=== PATIENT | male | born 1950 | race Caucasian/White ===

== ENCOUNTER 2019-05-21 20:34 | Observation (INO) ==
[2019-05-21] MEDS ORDERED: NITROGLYCERIN SL ONE (20:54)
[2019-05-21] MEDS ORDERED: GLUCAGON IV ONE (20:54)
[2019-05-21 21:18] LABS: BASO# 0.04 X1000 (0.0-0.2); BASO% 0.4 % (0.0-0.8); EOS# 0.03 X1000 (0.0-0.7); EOS% 0.3 % (0.0-10.0); HEMATOCRIT 54.3 % (42.0-52.0); HEMOGLOBIN 17.3 g/dL (14.0-18.0); IMM GRAN# 0.03 X1000 (0.0-0.04); IMM GRAN% 0.3 % (0.0-0.5); LYMPH# 1.11 X1000 (1.2-3.4); LYMPH% 10.3 % (20.5-51.1); MCH 30.7 PG (27-31); MCHC 31.9 g/dL (33-37); MCV 96.3 FL (81-99); MONO# 0.75 X1000 (0.11-0.59); MPV 10.2 FL (7.4-10.4); NEUT# 8.82 X1000 (1.4-6.5); NEUT% 81.7 % (42.2-75.2); PLT 271 X1000 (130-400); RBC 5.64 XMIL (4.7-6.1); RDW 12.4 % (11.5-14.5); WBC 10.78 X1000 (4.8-10.8)
[2019-05-21 21:43] LABS: ALB/GLOB RATIO 1.5; ALBUMIN 4.7 g/dL (3.5-5.0); CALCIUM 10.1 mg/dL (8.8-10.2); CREATININE 1.4 mg/dL (0.7-1.2); POTASSIUM 4.1 mmol/L (3.5-5.1); TOTAL BILIRUBIN 0.72 mg/dL (0.20-1.00); TOTAL PROTEIN 7.8 g/dL (6.3-8.3)
[2019-05-21] MEDS ORDERED: NS 1,000 ML IV SCH (22:15)
[2019-05-22] MEDS ORDERED: ZOFRAN IV PRN (00:24)
[2019-05-22] MEDS ORDERED: 1/2 NS 1,000 ML IV SCH (00:24)
--- NOTE | 2019-05-22 00:43 | HISTORY AND PHYSICAL ---
CHIEF COMPLAINT: Dysphagia of 5 days duration. HISTORY OF PRESENT ILLNESS: Patient is a 69-year-old male with no previous medical history who presents with dysphagia of 5 days duration. Patient describes having dysphagia which started after swallowing chicken. He said he felt the chicken got stuck in the middle of his throat. He has had dysphagia both to solid and liquids since then. The dysphagia is progressively worsening since then. Everything he has tried to eat since then he has always vomited it out. It has been difficult to hold anything down. He denies any odynophagia. Denies any fever. Denies any abdominal pain. Denies any change in his bowel movements. Denies any weight loss as well. Patient states he was having normal swallowing prior to this without any issues, but since 5 days ago he has had difficulty keeping anything down. Multiple times he has tried to initiate vomiting to see if he would vomit the chicken which he feels is stuck in the middle of his throat. He felt he vomited part of it but still feels there is a part of the chicken that is still stuck in the middle of his throat. Denies any shortness of breath or any cough. Due to the dysphagia, patient presented to the ER. In the ER, patient was seen. GI was consulted with plan to admit patient and patient to have an EGD tomorrow. ALLERGIES: No known drug allergies. PAST MEDICAL HISTORY: No previous past medical history. MEDICATIONS: Patient is not on any home medications. PAST SURGICAL HISTORY: Patient had a right leg ORIF done in the past. SOCIAL HISTORY: Describes past smoking history of about 100 pack years. Patient quit alcohol 20 years ago FAMILY HISTORY: Patient denies any significant family history, but patient's mother and his father are both healthy. REVIEW OF SYSTEM: Denies any dysuria, frequency, constipation or diarrhea. Ten-point review of systems done is negative except as stated in the HPI. PHYSICAL EXAMINATION: VITALS: Temperature 98.5, pulse was 108, respiratory rate is 20, blood pressure 123/78. O2 saturation is 96%. GENERAL: He is an elderly male in no acute respiratory distress. HEENT: Dry oral mucosa. Not pale. Anicteric. CARDIOVASCULAR: S1 and S2 heard. No murmurs, rubs or gallop. RESPIRATORY: Good air entry bilaterally. No wheeze. No crepitations. No added sound. NECK: No area of tenderness. No swelling noted as well about the neck. ABDOMEN: No area of tenderness. Bowel sounds normoactive. No organomegaly noted. EXTREMITIES: No pedal edema noted. NEUROLOGIC: Alert and oriented times 3. No significant neurological abnormalities noted. SKIN: No significant skin changes noted. LABORATORIES: WBC 10.78. Hemoglobin 17.3. Hematocrit 54.3. Platelets 271. Sodium 153. Potassium 4.1. Chloride 106. Carbon dioxide 27. BUN 43. Creatinine 1.4. Glucose 150. Alkaline phosphatase 123. AST 21. ALT 14. ASSESSMENT: He is a 69 year old with no significant past medical history who presents with dysphagia after eating chicken as patient felt the chicken is stuck in his throat. It has been difficult to keep anything down. He has had nausea and vomiting since then. He is having dysphagia to both solids and food and describes odynophagia as well. ACUTE DIAGNOSIS: 1. Dysphagia. 2. Hypernatremia. 3. Acute kidney injury. 4. Volume depletion with hemoconcentration. PLAN: 1. Dysphagia, GI plans to do an EGD to rule out any anatomical obstructive condition. Given patient describes dysphagia that started after eating with feeling of the chicken being stuck in the throat, we will do a CT of the neck with contrast to rule out any foreign body in the throat. We will put patient NPO after midnight and plan patient for EGD. GI consulted 2. Hypernatremia, fluid deficit of 3.5 L concomitant with a sodium level of 153 the plan will be to replete fluid with normal saline. We will do 80 mL/h of half-normal saline. Expect improvement in sodium level. Given patient also has an NAYLA. Half-normal saline would be better compared to D5 water repletion. 3. NAYLA. No previous baseline known. I expect creatinine level to improve with hydration with half-normal saline. We will monitor closely. Avoid all nephrotoxic medications. Monitor urine output. 4. Volume depletion with hemoconcentration. Patient's cell count appears elevated most likely due to volume depletion from poor oral intake. I expect his counts to improve and come to baseline with IV hydration with half-normal saline. DVT prophylaxis, Lovenox CODE STATUS: Full code. DISPOSITION: Admit to observation and we will discharge after EGD depending on EGD results when medically stable. [facility]
[2019-05-22 06:54] LABS: HEMATOCRIT 46.7 % (42.0-52.0); HEMOGLOBIN 15.3 g/dL (14.0-18.0); MCH 31.7 PG (27-31); MCHC 32.8 g/dL (33-37); MCV 96.7 FL (81-99); MPV 10.1 FL (7.4-10.4); RBC 4.83 XMIL (4.7-6.1); RDW 12.6 % (11.5-14.5); WBC 9.27 X1000 (4.8-10.8)
[2019-05-22 07:05] LABS: HEMOGLOBIN A1C 5.5 % (4.8-6.0)
[2019-05-22 07:19] LABS: CALCIUM 9.3 mg/dL (8.8-10.2); CREATININE 1.2 mg/dL (0.7-1.2)
--- NOTE | 2019-05-22 07:52 | Diag Imaging Result Doc PS360 ---
CT NECK W/O CONTRAST - 05/22/2019 INDICATION: dysphagia from chicken,feels stuck in throat COMPARISON: None FINDINGS: There is some fluid distention of the thoracic esophagus which is indeterminate. The soft tissues of the neck are unremarkable. No evidence of foreign body. No adenopathy. Mucosal surfaces are all clear. There are moderate degenerative changes of the spine. No acute or suspicious bony lesion. IMPRESSION: No acute abnormality. This exam was performed using automated exposure control, adjustment of mA or kV according to patient size, and/or use of iterative reconstruction technique Electronically signed by Jacob Craft 05/22/2019 7:50 AM
[2019-05-22] MEDS ORDERED: D5W 1,000 ML IV SCH (09:00)
[2019-05-22] MEDS ORDERED: XYLOCAINE-MPF 2% ONE (09:48)
[2019-05-22] MEDS ORDERED: QUELICIN (DOSE) ONE (09:48)
[2019-05-22] MEDS ORDERED: ROBINUL ONE (09:48)
[2019-05-22] MEDS ORDERED: DIPRIVAN 1% ONE ×2 (09:49→11:15)
--- NOTE | 2019-05-22 10:07 | GASTROENTEROLOGY CONSULTATION ---
DATE: 05/22/2019 REASON FOR CONSULTATION: Dysphagia, rule out food impaction. HISTORY OF PRESENT ILLNESS: Mr. Zhao Thurman is a 69-year-old gentle with past medical history of tobacco abuse who presents with 6 days of solid and liquid food dysphagia. The patient reports eating some chicken, which he felt like it got stuck in his chest. Since then he has not been able to tolerate p.o. intake. He has tried to eat bananas and sodas to wash down unsuccessfully. He reports some mild increased underlying shortness of breath. No chest pain, abdominal pain, changes in bowel habits, weight loss, fevers, chills or sweats. He says that he has had about 4 or 5 episodes like this in the past that responded spontaneously at home. He has not had a prior EGD or colonoscopy in the past. He does not have a primary care doctor. He is not on any medications. He smokes about 2 packs per day. REVIEW OF SYSTEMS: As per HPI, otherwise 12 point review of systems is negative. PAST MEDICAL HISTORY: As per HPI. PAST SURGICAL HISTORY: He has had ankle surgery. MEDICATIONS: None. ALLERGIES: No known drug allergies. SOCIAL HISTORY: He smokes 2 pack per day. Remote alcohol abuse, smokes marijuana, remote using. He reports using illicit drugs in the remote past. FAMILY HISTORY: Reviewed, noncontributory. PHYSICAL EXAMINATION: Vital Signs: Temperature is 97.8 degrees, heart rate of 72, respiratory rate of 20, blood pressure 115/47, O2 saturation 97% on room air. General: General patient is awake, alert, oriented, in no acute distress. HEENT: Sclerae anicteric. Moist mucous membranes. Extraocular motor intact. Neck: Supple. No JVD or lymphadenopathy. Cardiac: Regular rate and rhythm. No murmurs, rubs, or gallops. Lungs: Clear to auscultation bilaterally. Abdomen: Soft, nontender, nondistended. Normoactive bowel sounds. No rebound or guarding. Extremities: No clubbing, cyanosis, or edema. Neurologic: Nonfocal. LABS: White count of 9.2, hemoglobin is 17.3, platelets of 209,000. Sodium 150 from 153, potassium of 4.0, chloride of 108, bicarb 30, BUN of 46, creatinine of 1.2 from 1.4, glucose of 103. LFTs show an alkaline phosphatase of 123. IMAGING: CT of neck shows no acute abnormality. ASSESSMENT AND PLAN: Mr. Zhao Thurman is a 69-year-old gentleman with past medical history of tobacco abuse, marijuana abuse, who presents with subacute dysphagia to solids and liquids after eating chicken last Thursday. He has not been able to tolerate p.o. since then which is highly concerning for food impaction versus stricture. He denies any acid reflux or gastroesophageal reflux disease. Does not take any medications. Exam is unremarkable. Labs notable for hypernatremia, possibly Acute kidney injury, elevated BUN mildly elevated alkaline phosphatase. He appears not to be in any respiratory distress at this time. We have made him NPO. We will plan for diagnostic and therapeutic esophagogastroduodenoscopy today with general anesthesia. Thank you for this consult. We will follow with you. Please call with any questions or concerns.
--- NOTE | 2019-05-22 10:50 | ENDOSCOPY OPERATIVE NOTE ---
[facility] ENDOSCOPY OPERATIVE NOTE , EGD PROCEDURE REPORT EXAM DATE: 05/22/2019 PATIENT NAME: Zhao Thurman MR#: [id number] BIRTHDATE: 1950 ATTENDING: Juan Pablo Simental MD STATUS: inpatient FLIGHT ATTENDANT INFLIGHT SERVICES: INDICATIONS: The patient is a 69 yr old male here for an EGD due to dysphagia, pharyngeal-esophageal and r/o food impaction. PROCEDURE PERFORMED: EGD w/ biopsy MEDICATIONS: Per Anesthesia ESTIMATED BLOOD LOSS: None CONSENT: The patient understands the risks and benefits of the procedure and understands that these r isks include, but are not limited to: sedation, allergic reaction, infection, perforation and/or bleeding. Alternative means of evaluation and treatment include, among others: physical exam, x-rays, and/or surgical intervention. The patient elects to proceed with this endoscopic procedure. DESCRIPTION OF PROCEDURE: During pre-op preparation period all mechanical and medical equipment was c hecked for proper function. Hand hygiene and appropriate measures for infection prevention was taken. After the risks, benefits and alternatives of the procedure were thoroughly explained, Informed consent was verified, confirmed and timeout was successfully executed by the treatment team. The patient was anesthetized with topical anesthesia and the [id number] ([id number]) endoscope was introduced through the mouth and advanced to the second portion of the duoden um. Retroflexion was performed in the stomach and revealed no abnormalities. The gastroscope was then slowly withdraw n and removed. The patient's toleration of the procedure was excellent. ESOPHAGUS: Esophagitis was found in the entire esophagus. Esophagitis was LA Class C: Mucosal breaks continuous between > 2 mucosal folds, but involving less than 75% of the esophageal circumference. Multiple biopsies we re performed using cold forceps. Sample sent for histology. Multiple non-bleeding, shallow and clean-based ulcers ran ging between 3-5 mm in size were found in the middle third of the esophagus. STOMACH: Mild gastritis (inflammation) was found in the entire examined stomach. A biopsy was perfor med using cold forceps. Sample sent for histology. Multiple erosions were found in the entire examined stomach. DUODENUM: Moderate duodenal inflammation was found in the duodenal bulb. Two non-bleeding and clean -based ulcers ranging between 3-5 mm in size were found in the duodenal bulb. ADVERSE EVENTS: There were no complications. IMPRESSIONS: 1. Esophagitis in the entire esophagus; multiple biopsies were performed 2. Multiple ulcers ranging between 3-5 mm in size were found in the middle third of the esophagus 3. Gastritis (inflammation) was found in the entire examined stomach; biopsy was performed 4. Multiple erosions were found in the entire examined stomach 5. Duodenal inflammation was found in the duodenal bulb 6. Two ulcers ranging between 3-5 mm in size were found in the duodenal bulb RECOMMENDATIONS: 1. Await biopsy results 2. Pantoprazole 40mg PO BID for 3 months 3. Avoid aspirin and NSAIDs 4. GI soft diet, advance as tolerated 5. Will sign off. Please call with questions. REPEAT EXAM: Return in 3 months for EGD. Juan Pablo Simental MD eSigned: Juan Pablo Simental MD 05/22/2019 10:49 AM CC: CPT CODES: 79336 Upper gastrointestinal endoscopy including esophagus, stomach, and either the du odenum and/or jejunum as appropriate; with biopsy, single or multiple ICD CODES: 532.90 Duodenal ulcer unspecified as acute or chronic without hemorrhage or perforatio n without obstruction 535.60 Duodenitis (without mention of hemorrhage) 537.9 Unspecified disorder of stomach and duodenum 535.50 Unspecified gastritis and gastroduodenitis (without hemorrhage) 530.10 Esophagitis,unspecified 787.20 Dysphagia,unspecified The ICD and CPT codes recommended by this software are interpretations from the data that the medical center clinic staff has captured with the software. The verification of the translation of this report to the ICD and CPT co katy and modifiers is the sole responsibility of the health care institution and practicing physician where this report was generated. [employer] will not be held responsible for the validity of the ICD and CPT codes i ncluded on this report. [employer] assumes no liability for data contained or not contained herein. CPT is a registered tra demark of the [employer]. PATIENT NAME: Zhao Thurman MR#: [id number]
[2019-05-22] MEDS ORDERED: DUONEB (A & A) INH ONE (11:14)
[2019-05-22] MEDS: PROTONIX PO SCH ×2 (11:48→20:19)
[2019-05-22 16:39] LABS: AGAP 10; BUN 38 mg/dL (8-22); CALCIUM 8.5 mg/dL (8.8-10.2); CHLORIDE 103 mmol/L (98-107); COSMO 291; CREATININE 1.1 mg/dL (0.7-1.2); ESTIMATED GFR > 60; GLUCOSE 78 mg/dL (70-104); POTASSIUM 3.5 mmol/L (3.5-5.1); SODIUM 142 mmol/L (136-145); TCO2 29 mmol/L (25-35)
[2019-05-22] MEDS ORDERED: CHLORASEPTIC SPRAY MT PRN (19:30)
[2019-05-22] MEDS: LOVENOX SUBQ SCH (20:20)
[2019-05-23] MEDS: LOVENOX SUBQ SCH (01:33)
[2019-05-23 07:24] LABS: AGAP 9; BUN 25 mg/dL (8-22); CALCIUM 8.3 mg/dL (8.8-10.2); CHLORIDE 100 mmol/L (98-107); COSMO 280; ESTIMATED GFR > 60; GLUCOSE 106 mg/dL (70-104); POTASSIUM 3.3 mmol/L (3.5-5.1); SODIUM 138 mmol/L (136-145); TCO2 29 mmol/L (25-35)
[2019-05-23] MEDS ORDERED: POTASSIUM CHLORIDE 20% LIQUID PO ONE (08:00)
[2019-05-23 08:16] VITALS: BP 126/63
[2019-05-23] MEDS: PROTONIX PO SCH (08:16)
--- NOTE | 2019-05-23 15:07 | DISCHARGE SUMMARY ---
ADMISSION DATE: 05/22/2019 DISCHARGE DATE: 05/23/2019 DISCHARGE DIAGNOSES: 1. Dysphagia due to esophagitis, multiple ulcers in the middle third of the esophagus. 2. Esophagitis in the entire esophagus, multiple ulcers ranging between 3 to 5 mm in size were found in the middle 3rd of the esophagus. 3. Multiple erosions were found in the entire examined stomach. 4. Duodenitis found in the duodenal bulb with 2 ulcers ranging between 3 to 5 mm in size in the duodenal bulb. 5. Hypernatremia. 6. Hypokalemia. 7. Acute kidney injury, resolved with no previous records of kidney function. 8. Dehydration resolved. 9. Tobacco abuse. Patient has been counseled. PROCEDURES PERFORMED: 1. Neck CT scan dated 05/22/2019. Impression: No acute abnormality. 2. EGD dated 05/22/2019. Impression: Esophagitis with multiple ulcers ranging between 3 to 5 mm in size were found in the middle third of the esophagus. 3. Gastritis with multiple erosions. 4. Duodenitis in the duodenal bulb with 2 ulcers ranging between 3 to 5 mm in size. HOSPITAL COURSE: A 69-year-old male with a past medical history of tobacco use presented with dysphagia that has been going on for 5 days. He was admitted on 05/22/2019. Apparently, this started after swallowing chicken, and he felt the chicken got stuck in the middle of his throat. He has been having dysphagia to both solids and liquids since then, and has been progressively getting worse. He has not been able to keep anything down due to nausea and vomiting. He denies odynophagia. Denies fever. No abdominal pain. No change in the bowel regimen. He has not been losing weight. No shortness of breath. Gastroenterology Department was consulted. They did a upper endoscopy that showed esophagitis with multiple ulcers, and also gastritis with some erosions and duodenitis in the duodenal bulb with 2 ulcers ranging between 3 to 5 mm in size. They have recommended to put this patient on pantoprazole twice a day for 3 months, and also follow up with them because probably he will need to get a new upper endoscopy done. This has been explained to the patient, and also I explained to the patient the that he needs to stop smoking completely. He seems to understand, and he agreed with the plan. He is going home with hypernatremia resolved. He is a little bit hypokalemic, and the potassium has been replaced. He seems to be in stable medical condition. He is tolerating p.o., and he is willing to go home. DISCHARGE EXAMINATION: Vital Signs: Temperature 97.4 degrees, pulse 80, respiratory rate 16, blood pressure 126/63, and oxygen saturation 95% on room air. HEENT: Head normocephalic. No trauma. PERRLA. Neck: Supple. No JVD. No masses. Central trachea. Chest: Clear to auscultation. No wheezing. No rales. Abdomen: Soft, nontender, and nondistended. No hepatosplenomegaly. Extremities: No edema. No clubbing. No cyanosis. Neurological: The patient is awake and alert. He is oriented. No focal deficits. LABORATORY: Sodium 138, potassium 3.3, chloride 100, bicarbonate 29, BUN 25, creatinine 1, glucose 106, and calcium 8.3. DISCHARGE MEDICATIONS: Pantoprazole 40 mg p.o. b.i.d. RECOMMENDATIONS: I recommended to the patient to take his medications as prescribed. Also, he needs to stop smoking completely. Follow up with Gastroenterology Department in 3 months. This has been explained to the patient, and he agreed with the plan. cc: Grzegorz Espitia MD
== END 2019-05-23 11:08 | disposition home or self-care (01) ==
LOC: ED 20:34 → 4N 05-22 → INTOOBSV 05-22 → SUATTDRO 05-22
PROVIDERS: ATTEND Internal Medicine